=== PATIENT | female | born 1985 | race Two or more races ===

== ENCOUNTER 2023-02-09 09:03 | Emergency (ER) | payer OTHER ==
[~2023-02-09] VITALS: Ht 188 cm; Wt 176.9 kg
[2023-02-09] MEDS ORDERED: TOPROL XL25 M1 PO (09:40)
[2023-02-09] MEDS ORDERED: ZESTRIL40 M1 PO (09:41)
[2023-02-09] MEDS ORDERED: AMLODIPINE-OLM1 EAC2 PO (09:41)
[2023-02-09 12:44] LABS: HEMOGLOBIN 13.7 g/dL (12.0-15.00); MEAN CELL VOLUME 84.9 fL (80.00-100.00); MEAN CORPUSCULAR HEMOGLOBIN 28.4 pg (27.00-32.0); MEAN CORPUSCULAR HGB CONC 33.4 g/dl (32.0-36.0); PLATELET COUNT 278 K/uL (150-450); RED BLOOD COUNT 4.83 M/uL (4.00-6.00); RED CELL DISTRIBUTION WIDTH 13.7 % (11.5-14.5)
[2023-02-09 13:06] LABS: CALCIUM 8.9 mg/dL (8.5-10.1); CREATININE SERUM 0.9 mg/dL (0.55-1.02); GFR 70.07; POTASSIUM 3.79 mEq/L (3.5-5.1)
== END 2023-02-09 17:01 | disposition left against medical advice (07) ==
LOC: ER 09:03
PROVIDERS: General Practice
DX: O20.0 Threatened abortion (principal); I10 Essential (primary) hypertension